=== PATIENT | male | born 1965 | race African-American/Black ===

== ENCOUNTER 2017-01-14 14:05 | Emergency (ER) | payer MEDICAID ==
[~2017-01-14] VITALS: Ht 182.9 cm; Wt 95.0 kg
[2017-01-14 17:57] VITALS: BP 106/74
== END 2017-01-14 18:02 | disposition home or self-care (01) ==
LOC: ED 17:45
DX: R42 Dizziness and giddiness (principal); H53.8 Other visual disturbances; F15.10 Other stimulant abuse, uncomplicated; J01.00 Acute maxillary sinusitis, unspecified; F17.200 Nicotine dependence, unspecified, uncomplicated; F41.9 Anxiety disorder, unspecified; F31.9 Bipolar disorder, unspecified; M54.30 Sciatica, unspecified side
CPT/HCPCS: 36415; 70450; 80047; 93005

== ENCOUNTER 2017-05-14 01:01 | Inpatient (IN) | payer MEDICAID ==
[~2017-05-14] VITALS: Ht 188 cm; Wt 86.0 kg
[2017-05-14] MEDS ORDERED: NALOXONE 1 MG/ML, 2ML ONE (01:04)
[2017-05-14] MEDS ORDERED: NALOXONE 0.4 MG/ML, 1ML IVPush ONE (01:30)
[2017-05-14] MEDS ORDERED: NALOXONE 1 MG/ML, 2ML IVPush ONE (01:30)
[2017-05-14] MEDS ORDERED: SODIUM CHLORIDE 0.9% 1,000ML IVBOLUS ONE ×3 (01:30→04:00)
[2017-05-14 01:42] LABS: ASPARTATE AMINO TRANSFERASE 29 U/L (15-37); BLOOD UREA NITROGEN 14 mg/dL (7-18)
[2017-05-14 01:49] LABS: DAU SCREEN DISCLAIMER
[2017-05-14 01:56] LABS: ACETAMINOPHEN 4 mcg/mL (10-30)
[2017-05-14] MEDS ORDERED: EPINEPHRINE 1 MG in SODIUM CHLORIDE 0.9% 249 ML IV PRN ×2 (02:32→04:30)
[2017-05-14 03:48] LABS: ABG COLLECTION SITE RIGHT RADIAL; COLLATERAL CIRCULATION TESTING NORMAL
[2017-05-14] MEDS ORDERED: MIDAZOLAM HCL 25 MG in SODIUM CHLORIDE 0.9% 245 ML IV PRN (03:56)
[2017-05-14] MEDS ORDERED: ROCURONIUM 10 MG/ML IVPush ONE (04:00)
[2017-05-14] MEDS ORDERED: KETAMINE 10 MG/ML, 20ML IV ONE ×2 (04:00)
[2017-05-14] MEDS ORDERED: KETAMINE 10 MG/ML, 20ML ONE (04:01)
[2017-05-14] MEDS ORDERED: LORazepam 2 MG/ML, 1ML IVPush PRN (04:30)
[2017-05-14] MEDS ORDERED: ONDANSETRON 2MG/ML, 2ML IVPush PRN (04:30)
[2017-05-14] MEDS ORDERED: morphine SULFATE 10 MG/ML, 1ML IVPush PRN (04:30)
[2017-05-14 05:14] LABS: ABG COLLECTION SITE LEFT RADIAL; COLLATERAL CIRCULATION TESTING NORMAL
[2017-05-14] MEDS ORDERED: PROPOFOL 100 ML IV PRN (05:34)
[2017-05-14] MEDS ORDERED: ENOXAPARIN 40 MG/0.4 ML ONE (05:46)
[2017-05-14] MEDS: D5%-0.9% NACL 1,000 ML IV SCH ×3 (05:47→19:12)
[2017-05-14] MEDS: ENOXAPARIN 40 MG/0.4 ML SQ SCH (05:52)
[2017-05-14] MEDS ORDERED: DEXTROSE 50%, 50ML SYRINGE IVPush PRN (06:00)
[2017-05-14] MEDS ORDERED: ALBUTEROL/IPRATROPIUM 2.5MG/0.5MG, 3 ML INLINE PRN (06:00)
[2017-05-14] MEDS ORDERED: LIDOCAINE-MPF 1%, 2ML ENDO PRN (06:00)
[2017-05-14] MEDS ORDERED: PHARMACY MAY ADJ FOR RENAL FX MC SCH (06:00)
[2017-05-14] MEDS ORDERED: GLUCAGON 1 MG IM PRN (06:00)
[2017-05-14 06:12] LABS: IS PT STATUS REG ER OR PRE ER? YES
[2017-05-14] MEDS ORDERED: SODIUM CHLORIDE 0.9% IV PRN (08:00)
[2017-05-14] MEDS ORDERED: EPINEPHRINE IV PRN (08:00)
[2017-05-14 10:41] LABS: IS PT STATUS REG ER OR PRE ER? NO
[2017-05-14] MEDS: SODIUM CHLORIDE FLUSH 10ML SYR IVF SCH ×2 (13:12→21:36)
[2017-05-14] MEDS: FAMOTIDINE 20 MG/2 ML IVPush SCH ×2 (13:12→21:36)
[2017-05-14 13:51] LABS: PATH.CAST-FLAG NOT PRESENT; SPERM-FLAG NOT PRESENT; SRC-FLAG NOT PRESENT; XTAL-FLAG NOT PRESENT; YLC-FLAG NOT PRESENT
[2017-05-14] MEDS ORDERED: ROCURONIUM 10 MG/ML ONE (16:38)
[2017-05-14] MEDS: FENTANYL PF 100 MCG/2ML IVPush PRN ×2 (18:11→20:34)
[2017-05-15] MEDS: FENTANYL PF 100 MCG/2ML IVPush PRN (00:30)
[2017-05-15] MEDS: D5%-0.9% NACL 1,000 ML IV SCH ×4 (02:20→23:00)
[2017-05-15 04:00] VITALS: BP 109/75
[2017-05-15 04:22] LABS: ABG COLLECTION SITE RIGHT RADIAL; COLLATERAL CIRCULATION TESTING NORMAL
[2017-05-15 04:31] LABS: ASPARTATE AMINO TRANSFERASE 18 U/L (15-37); BLOOD UREA NITROGEN 7 mg/dL (7-18)
[2017-05-15] MEDS: ENOXAPARIN 40 MG/0.4 ML SQ SCH (05:42)
[2017-05-15] MEDS ORDERED: MAGNESIUM SULFATE PMX 2GM/50ML 50 ML IV ONE (07:00)
[2017-05-15] MEDS ORDERED: SODIUM PHOSPHATE 20 MMOL in SODIUM CHLORIDE 0.9% 500 ML IV ONE (07:00)
[2017-05-15] MEDS: SODIUM CHLORIDE FLUSH 10ML SYR IVF SCH ×2 (08:53→21:25)
[2017-05-15] MEDS: FAMOTIDINE 20 MG/2 ML IVPush SCH ×2 (08:53→21:25)
[2017-05-16 04:00] VITALS: BP 106/75
[2017-05-16 04:38] LABS: ABG COLLECTION SITE RIGHT RADIAL; COLLATERAL CIRCULATION TESTING NORMAL
[2017-05-16] MEDS: D5%-0.9% NACL 1,000 ML IV SCH (05:20)
[2017-05-16] MEDS: ENOXAPARIN 40 MG/0.4 ML SQ SCH (08:00)
[2017-05-16] MEDS: SODIUM CHLORIDE 0.9% 1,000 ML IV SCH ×2 (08:00→21:00)
[2017-05-16] MEDS: SODIUM CHLORIDE FLUSH 10ML SYR IVF SCH ×2 (08:01→21:00)
[2017-05-16 13:21] VITALS: BP 116/82
[2017-05-16 19:24] VITALS: BP 129/79
[2017-05-17 02:00] VITALS: BP 114/76
[2017-05-17] MEDS: SODIUM CHLORIDE 0.9% 1,000 ML IV SCH (05:04)
[2017-05-17 06:20] VITALS: BP 106/70
[2017-05-17] MEDS: SODIUM CHLORIDE FLUSH 10ML SYR IVF SCH ×2 (08:40→21:00)
[2017-05-17] MEDS: ENOXAPARIN 40 MG/0.4 ML SQ SCH (08:41)
[2017-05-17 14:20] VITALS: BP 137/74
[2017-05-17] MEDS ORDERED: ZIPRASIDONE 20 MG INJ IM PRN (16:30)
[2017-05-17] MEDS ORDERED: LORazepam 1MG TABLET PO PRN (16:30)
[2017-05-17 19:40] VITALS: BP 106/66
[2017-05-17 22:36] VITALS: BP 133/87
[2017-05-18 07:28] VITALS: BP 115/73
[2017-05-18] MEDS: ENOXAPARIN 40 MG/0.4 ML SQ SCH (08:41)
== END 2017-05-18 14:53 | DRG 917 ==
LOC: ED 01:12 → EDIP 03:11 → CCU 07:32 → 5SO 05-16 09:52 → 3NE 05-17 17:12 → 3E 05-17 22:33
PROVIDERS: ADMIT Internal Medicine; ATTEND Internal Medicine
PROC: 0BH18EZ Insertion of Endotracheal Airway into Trachea, Via Natural or Artificial Opening Endoscopic (ICD-10-PCS; principal; 2017-05-14)
PROC: 0YH733Z Insertion of Infusion Device into Right Femoral Region, Percutaneous Approach (ICD-10-PCS; 2017-05-14)
PROC: 5A1945Z Respiratory Ventilation, 24-96 Consecutive Hours (ICD-10-PCS; 2017-05-14)
DX: T42.6X2A Poisoning by other antiepileptic and sedative-hypnotic drugs, intentional self-harm, initial encounter (principal); J96.02 Acute respiratory failure with hypercapnia; N17.0 Acute kidney failure with tubular necrosis; G92 Toxic encephalopathy; R57.9 Shock, unspecified; E87.2 Acidosis; B19.20 Unspecified viral hepatitis C without hepatic coma; F15.10 Other stimulant abuse, uncomplicated; F12.10 Cannabis abuse, uncomplicated; T44.7X2A Poisoning by beta-adrenoreceptor antagonists, intentional self-harm, initial encounter; Y92.89 Other specified places as the place of occurrence of the external cause
CPT/HCPCS: 31500; 36415; 36569; 36600; 51702; 71010; 80053; 80162; 80307; 80329; 81001; 82140; 82550; 82803; 83735; 84100; 84443; 84478; 84484; 85025; 87070; 87081; 87205; 93005; 94002; 94003; 96374; J0171; J1650; J2310; J3010; J7042; G0480; J3475; J7030; J7040; J7050; S0028

== ENCOUNTER 2017-08-22 05:21 | Emergency (ER) | payer MEDICAID ==
[~2017-08-22] VITALS: Ht 182.9 cm; Wt 88.7 kg
[2017-08-22] MEDS ORDERED: IBUPROFEN 200 MG TABLET PO ONE (06:30)
[2017-08-22] MEDS ORDERED: IBUPROFEN 200 MG TABLET ONE (06:31)
[2017-08-22 07:53] VITALS: BP 144/94
== END 2017-08-22 07:56 | disposition home or self-care (01) ==
LOC: ED 07:45
DX: N49.2 Inflammatory disorders of scrotum (principal); N50.812 Left testicular pain
CPT/HCPCS: 76870; 81003; 87491; 87591; 99285

== ENCOUNTER 2017-11-28 16:28 | Emergency (ER) | payer MEDICAID ==
[~2017-11-28] VITALS: Ht 182.9 cm; Wt 95.7 kg
[2017-11-28] MEDS ORDERED: HYDROcodone/APAP 5/325 TABLET PO STA (17:57)
[2017-11-28] MEDS ORDERED: IBUPROFEN 200 MG TABLET PO ONE (18:00)
[2017-11-28] MEDS ORDERED: AZITHROMYCIN 500 MG TABLET PO ONE (18:00)
[2017-11-28] MEDS ORDERED: CEFTRIAXONE 250 MG IM ONE (18:00)
[2017-11-28] MEDS ORDERED: AZITHROMYCIN 250 MG TABLET ONE (18:17)
[2017-11-28] MEDS ORDERED: CEFTRIAXONE 250 MG ONE (18:17)
[2017-11-28] MEDS ORDERED: IBUPROFEN 200 MG TABLET ONE (18:17)
[2017-11-28] MEDS ORDERED: HYDROcodone/APAP 5/325 TABLET ONE (18:18)
[2017-11-28] MEDS ORDERED: LIDOCAINE 1%, 20ML ONE (18:18)
[2017-11-28 18:33] LABS: ALBUMIN 3.4 g/dL (3.4-5.0); ANION GAP 7 mmol/L (5-15); CALCIUM 8.3 mg/dL (8.5-10.1); CHLORIDE 110 mmol/L (98-107); CREATININE 0.95 mg/dL (0.7-1.3)
[2017-11-28 18:47] LABS: MEAN CORPUSCULAR HEMOGLOBIN 26.7 pg (27.5-34.5); MEAN CORPUSCULAR HGB CONC 32.1 g/dL (33.2-36.2); MEAN CORPUSCULAR VOLUME 83.3 fL (81-97); MEAN PLATELET VOLUME 7.5 fL (7.4-10.4); PLATELET COUNT 267 x10^3/uL (130-400); RED BLOOD COUNT 5.21 x10^6/uL (4.38-5.82); RED CELL DISTRIBUTION WIDTH 14.8 % (9.4-14.8)
[2017-11-28 19:11] LABS: MICROSCOPIC NOT IND
[2017-11-28 19:15] LABS: CULTURE INDICATED? NO
[2017-11-28 19:24] VITALS: BP 128/86
[2017-11-28 19:40] LABS: BASOPHILS # (AUTO) 0.02 x10^3/uL (0-0.1); BASOPHILS % (AUTO) 0 % (0-1); EOSINOPHILS # (AUTO) 0.07 x10^3/uL (0-0.4); EOSINOPHILS % (AUTO) 1 % (1-7); LYMPHOCYTES # (AUTO) 1.59 x10^3/uL (1-3.4); LYMPHOCYTES % (AUTO) 29 % (22-44); MD SCAN; MONOCYTES % (AUTO) 7 % (2-9); NEUTROPHILS # (AUTO) 3.41 x10^3/uL (1.8-6.8); NEUTROPHILS % (AUTO) 62 % (42-75)
== END 2017-11-28 20:30 | disposition home or self-care (01) ==
LOC: ED 19:45
DX: K40.91 Unilateral inguinal hernia, without obstruction or gangrene, recurrent (principal); F17.210 Nicotine dependence, cigarettes, uncomplicated
CPT/HCPCS: 36415; 80048; 81003; 82040; 85025; 96372; 99284; J0696

== ENCOUNTER 2017-12-06 12:46 | Day surgery (SDC) | payer MEDICAID ==
[~2017-12-06] VITALS: Ht 182.9 cm; Wt 95.6 kg
[2017-12-06] MEDS ORDERED: EPINEPHRINE 1 MG/ML, 1ML ONE (12:55)
[2017-12-06] MEDS ORDERED: BUPIVACAINE/PF 0.5% ONE (12:55)
[2017-12-06] MEDS ORDERED: LACTATED RINGERS 1,000 ML IV SCH ×2 (13:02→14:46)
[2017-12-06] MEDS ORDERED: NONE PER PT (13:03)
[2017-12-06 13:23] VITALS: BP 127/86
[2017-12-06] MEDS ORDERED: MIDAZOLAM 1 MG/ML, 2ML ONE (13:36)
[2017-12-06] MEDS ORDERED: FENTANYL PF 250 MCG/5ML ONE (13:36)
[2017-12-06] MEDS ORDERED: CEFAZOLIN 1,000 MG ONE (13:38)
[2017-12-06] MEDS ORDERED: DEXAMETHASONE 4 MG/ML, 1ML ONE (13:38)
[2017-12-06] MEDS ORDERED: PROPOFOL 10 MG/ML, 20ML ONE (13:38)
[2017-12-06] MEDS ORDERED: ROCURONIUM 10 MG/ML,10ML ONE (13:38)
[2017-12-06] MEDS ORDERED: SUCCINYLCHOLINE 20 MG/ML, 10ML ONE (13:38)
[2017-12-06] MEDS ORDERED: ONDANSETRON 2MG/ML, 2ML ONE (13:38)
[2017-12-06] MEDS ORDERED: ACETAMINOPHEN 650 MG/20.3 ML UDC ONE (14:58)
[2017-12-06] MEDS ORDERED: OXYcodone 5 MG/5 ML ORAL.SOL UDC ONE (14:58)
[2017-12-06] MEDS ORDERED: FENTANYL PF 100 MCG/2ML ONE (14:58)
[2017-12-06] MEDS ORDERED: ACETAMINOPHEN 325 MG TABLET PO PRN (15:00)
[2017-12-06] MEDS ORDERED: morphine SULFATE 10 MG/ML, 1ML IVPush PRN (15:00)
[2017-12-06] MEDS ORDERED: PROMETHAZINE 25 MG/ML, 1ML IM PRN (15:00)
[2017-12-06] MEDS ORDERED: OXYcodone 5 MG/5 ML ORAL.SOL UDC PO PRN (15:00)
[2017-12-06] MEDS ORDERED: hydrALAzine 20 MG/ML, 1ML IV PRN (15:00)
[2017-12-06] MEDS ORDERED: LABETALOL 5MG/ML, 20ML IV PRN (15:00)
[2017-12-06] MEDS ORDERED: ONDANSETRON 2MG/ML, 2ML IVPush PRN ×2 (15:00)
[2017-12-06] MEDS ORDERED: METOCLOPRAMIDE 5 MG/ML, 2ML IV PRN (15:00)
[2017-12-06] MEDS: FENTANYL PF 100 MCG/2ML IV PRN ×2 (15:09→15:22)
[2017-12-06] MEDS ORDERED: HYDROmorphone 2 MG/ML, 1ML ONE (15:29)
[2017-12-06] MEDS: HYDROmorphone 1 MG/ML, 1ML IV PRN ×2 (15:32→15:40)
[2017-12-06] MEDS ORDERED: ONDANSETRON ODT 4 MG ONE (17:05)
[2017-12-06] MEDS ORDERED: ONDANSETRON ODT 4 MG PO PRN (17:30)
== END 2017-12-06 17:15 ==
LOC: OUT 12:46
PROVIDERS: ATTEND Surgery
DX: K40.90 Unilateral inguinal hernia, without obstruction or gangrene, not specified as recurrent (principal); D17.6 Benign lipomatous neoplasm of spermatic cord; F19.90 Other psychoactive substance use, unspecified, uncomplicated; Z72.89 Other problems related to lifestyle; Z72.0 Tobacco use
CPT/HCPCS: 49505; C1781; J0171; J0330; J0690; J1100; J1170; J2250; J2405; J2704; J3010; J3490; J7120; Q0162

== ENCOUNTER 2017-12-09 21:04 | Emergency (ER) | payer MEDICAID ==
[~2017-12-09] VITALS: Ht 182.9 cm; Wt 97.6 kg
[~2017-12-09 21:04] MED LIST: NONE PER PT
[2017-12-09 21:11] VITALS: BP 126/90
[2017-12-09 21:54] LABS: MEAN CORPUSCULAR HEMOGLOBIN 27.1 pg (27.5-34.5); MEAN CORPUSCULAR HGB CONC 32.7 g/dL (33.2-36.2); MEAN PLATELET VOLUME 7.6 fL (7.4-10.4); PLATELET COUNT 288 x10^3/uL (130-400); RED BLOOD COUNT 5.19 x10^6/uL (4.38-5.82); RED CELL DISTRIBUTION WIDTH 14.8 % (9.4-14.8)
[2017-12-09] MEDS ORDERED: OXYcodone/APAP 5/325MG TABLET PO ONE (22:00)
[2017-12-09 22:02] LABS: ANION GAP 9 mmol/L (5-15); CALCIUM 8.4 mg/dL (8.5-10.1); CHLORIDE 107 mmol/L (98-107); CREATININE 1.17 mg/dL (0.7-1.3)
[2017-12-09 22:05] LABS: MD YES
[2017-12-09 22:08] LABS: EOS#(MANUAL) 0.16 x10^3/uL (0.0-0.4); EOS% (MANUAL) 2 % (1-7); LYMPH#(MANUAL) 2.21 x10^3/uL (1-3.4); LYMPHS% (MANUAL) 28 % (22-44); MONOS#(MANUAL) 0.32 x10^3/uL (0.3-2.7); MONOS% (MANUAL) 4 % (2-9); REACTIVE LYMPHS # (MANUAL) 0.16 x10^3/uL (0-0); REACTIVE LYMPHS % (MANUAL) 2 % (0-0); SEG#(MANUAL) 5.06 x10^3/uL (1.8-6.8); SEGS% (MANUAL) 64 % (42-75)
[2017-12-09 22:09] LABS: <PLATELET ESTIMATE> ADEQUATE; <PLT MORPHOLOGY> NORMAL PLT MORPH; HYPOCHROMIA 1+; POLYCHROMASIA 1+
[2017-12-09] MEDS ORDERED: OXYcodone/APAP 5/325MG TABLET ONE (22:09)
== END 2017-12-09 22:32 | disposition home or self-care (01) ==
LOC: ED 22:17
DX: G89.18 Other acute postprocedural pain (principal); Z98.890 Other specified postprocedural states; F41.9 Anxiety disorder, unspecified; F31.9 Bipolar disorder, unspecified
CPT/HCPCS: 36415; 80048; 85025; 99284

== ENCOUNTER 2018-08-02 23:52 | Emergency (ER) | payer MEDICAID ==
[~2018-08-02] VITALS: Ht 182.9 cm; Wt 105.0 kg
[2018-08-03] MEDS ORDERED: ALBUTEROL SULFATE 2.5 MG/3 ML NPPB ONE
[2018-08-03] MEDS ORDERED: SODIUM CHLORIDE 0.9% 1,000ML IVBOLUS ONE
[2018-08-03] MEDS ORDERED: ACETAMINOPHEN 325 MG TABLET PO ONE
[2018-08-03] MEDS ORDERED: KETOROLAC 30 MG/1 ML IVPush ONE (00:30)
[2018-08-03 00:32] LABS: BASOPHILS # (AUTO) 0.02 x10^3/uL (0-0.1); BASOPHILS % (AUTO) 0 % (0-1); EOSINOPHILS # (AUTO) 0.09 x10^3/uL (0-0.4); EOSINOPHILS % (AUTO) 2 % (1-7); LYMPHOCYTES # (AUTO) 0.84 x10^3/uL (1-3.4); LYMPHOCYTES % (AUTO) 14 % (22-44); MD NO; MEAN CORPUSCULAR HEMOGLOBIN 27.6 pg (27.5-34.5); MEAN CORPUSCULAR HGB CONC 33.6 g/dL (33.2-36.2); MEAN CORPUSCULAR VOLUME 82.4 fL (81-97); MEAN PLATELET VOLUME 8.2 fL (7.4-10.4); MONOCYTES % (AUTO) 10 % (2-9); NEUTROPHILS # (AUTO) 4.42 x10^3/uL (1.8-6.8); NEUTROPHILS % (AUTO) 74 % (42-75); PLATELET COUNT 216 x10^3/uL (130-400); RED BLOOD COUNT 5.39 x10^6/uL (4.38-5.82); RED CELL DISTRIBUTION WIDTH 14.4 % (9.4-14.8)
[2018-08-03] MEDS ORDERED: KETOROLAC 30 MG/1 ML ONE (00:32)
[2018-08-03 00:33] LABS: CULTURE INDICATED? NO; MICROSCOPIC NOT IND
[2018-08-03 00:46] LABS: ALANINE AMINOTRANSFERASE 25 U/L (12-78); ALBUMIN 3.3 g/dL (3.4-5.0); ANION GAP 7 mmol/L (5-15); CALCIUM 7.9 mg/dL (8.5-10.1); CHLORIDE 106 mmol/L (98-107); CREATININE 1.01 mg/dL (0.7-1.3)
[2018-08-03 00:50] LABS: ALKALINE PHOSPHATASE 66 U/L (45-117); BILIRUBIN,TOTAL 0.4 mg/dL (0.2-1.0); TOTAL PROTEIN 7.3 g/dL (6.4-8.2); TROPONIN I < 0.015 ng/mL (0.000-0.045)
[2018-08-03 00:54] LABS: RAPID INFLUENZA A Negative (Negative); RAPID INFLUENZA B Negative (Negative)
[2018-08-03 01:42] VITALS: BP 104/74
== END 2018-08-03 02:34 | disposition home or self-care (01) ==
LOC: ED 08-03 00:07
DX: M79.10 Myalgia, unspecified site (principal); R05 Cough; E78.00 Pure hypercholesterolemia, unspecified
CPT/HCPCS: 36415; 71045; 80053; 81003; 83605; 84145; 84484; 85025; 87040; 87400; 94640; 96374; 99285; J1885; J7030; J7613

== ENCOUNTER 2018-09-11 15:50 | Emergency (ER) | payer MEDICAID ==
[~2018-09-11] VITALS: Ht 182.9 cm; Wt 101.6 kg
[2018-09-11] MEDS ORDERED: DEXAMETHASONE 4 MG/ML, 1ML IM ONE (16:00)
[2018-09-11 16:17] VITALS: BP 132/84
[2018-09-11] MEDS ORDERED: DEXAMETHASONE 4 MG/ML, 1ML ONE (16:26)
[2018-09-11] MEDS ORDERED: ALBUTEROL/IPRATROPIUM 2.5MG/0.5MG, 3 ML ONE (16:35)
[2018-09-11] MEDS ORDERED: AZITHROMYCIN 250 MG TABLET ONE (16:58)
[2018-09-11] MEDS ORDERED: AZITHROMYCIN 500 MG TABLET PO ONE (17:00)
== END 2018-09-11 17:59 | disposition home or self-care (01) ==
LOC: ED 16:17
DX: J06.9 Acute upper respiratory infection, unspecified (principal); J96.01 Acute respiratory failure with hypoxia; F31.9 Bipolar disorder, unspecified; E78.00 Pure hypercholesterolemia, unspecified; F17.200 Nicotine dependence, unspecified, uncomplicated
CPT/HCPCS: 71045; 93005; 94640; 96372; 99284; J1100

== ENCOUNTER 2020-08-02 00:17 | Emergency (ER) | payer MEDICAID ==
[~2020-08-02] VITALS: Ht 182.9 cm; Wt 102.3 kg
[~2020-08-02 00:17] MED LIST changes: +ALBU0.63 NEB; +ALBU18HF INH; +ATOR10TA9 PO; +IPRA4AER INH; +PRED10TA14 PO
[2020-08-02 00:20] VITALS: BP 138/96
--- NOTE | 2020-08-02 00:26 | NUR ---
HEMP FIBER TAKER OFF: NO CODE NEURO PER DR SINGER.
[2020-08-02] MEDS ORDERED: NAPROXEN 500 MG TABLET ONE (00:43)
[2020-08-02] MEDS ORDERED: METHOCARBAMOL 750 MG TABLET ONE (00:43)
[2020-08-02] MEDS ORDERED: NAPROXEN 500 MG TABLET PO ONE (01:00)
[2020-08-02] MEDS ORDERED: METHOCARBAMOL 750 MG TABLET PO ONE (01:00)
== END 2020-08-02 01:21 | disposition home or self-care (01) ==
LOC: ED 01:19
DX: M54.12 Radiculopathy, cervical region (principal); G89.29 Other chronic pain; R00.0 Tachycardia, unspecified; R94.31 Abnormal electrocardiogram [ECG] [EKG]; E78.00 Pure hypercholesterolemia, unspecified; J45.909 Unspecified asthma, uncomplicated; F17.200 Nicotine dependence, unspecified, uncomplicated
CPT/HCPCS: 93005; 99283